=== PATIENT | male | born 1980 | race Asian ===

== ENCOUNTER → 2024-11-22 | Outpatient (CLI) | payer BC, SELFPAY ==
[2024-11-22 11:16] LABS: Collection Type, Urine Clean Catch; Squamous Epithelial Cell,Urine 0 /hpf (0-5)
[2024-11-22 11:42] LABS: Hemoglobin 15.4 g/dL (13.5-16.0); Immature Granulocytes % (Auto) 0 % (0-0); Immature Granulocytes Auto 0.02 Thou/mm3 (0.00-0.00); Lymphocytes % (Auto) 33 % (10-50); Mean Corpuscular Volume 86 fL (80-100); Nucleated Red Blood Cell % 0 /100 WBC (0)
[2024-11-22 11:48] LABS: Basophils # (Auto) 0.1 Thou/mm3 (0.0-0.2); Basophils % (Auto) 1 % (0-2.5); Eosinophils # (Auto) 0.3 Thou/mm3 (0.0-0.5); Eosinophils % (Auto) 3 % (0-10); Hematocrit 44.9 % (41.0-53.0); Lymphocytes # (Auto) 2.5 Thou/mm3 (1.0-4.8); Mean Corpuscular HGB Conc 34.3 g/dl (31.0-37.0); Mean Corpuscular Hemoglobin 29.5 pg (25.0-35.0); Monocytes # (Auto) 0.7 Thou/mm3 (0.0-0.8); Monocytes % (Auto) 9 % (0-12); Neutrophils # (Auto) 4.1 Thou/mm3 (1.8-7.7); Neutrophils % (Auto) 54 % (37-80); Platelet Count 377 Thou/mm3 (140-440); RDW Standard Deviation 41.9 fL (35.1-43.9); Red Blood Count 5.22 Miln/mm3 (4.50-5.90); White Blood Count 7.7 Thou/mm3 (3.8-10.6)
[2024-11-22 11:52] LABS: Prostate Specific Antigen 0.91 ng/mL (0-4.00)
[2024-11-22 11:58] LABS: Alanine Aminotransferase 48 U/L (10-49); Albumin, Serum 4.7 gm/dL (3.5-5.0); Albumin/Globulin Ratio 1.7 (1.2-2.2); Alkaline Phosphatase 88 U/L (46-116); Anion Gap 9 (7-16); Aspartate Amino Transferase 34 U/L (0-34); BUN/Creatinine Ratio 14 Ratio (12-20); Bilirubin,Total 0.9 mg/dL (0.3-1.2); Blood Urea Nitrogen 13 mg/dL (9-23); Calcium 9.7 mg/dL (8.3-10.6); Calcium (Corrected) 9.7 mg/dL (8.5-10.1); Carbon Dioxide 26.8 mMol/L (20.0-31.0); Cardiac Risk Estimate 2.6 RATIO (4.0-6.7); Chloride 105 mMol/L (98-107); Cholesterol 151 mg/dL (132-200); Creatinine (Component) 0.9 mg/dL (0.6-1.3); Free T4 (Free Thyroxine) 1.47 ng/dL (0.89-1.76); Globulin 2.7 gm/dL (2.3-3.5); Glucose 93 mg/dL (74-106); HDL Cholesterol 58 mg/dL (40-60); LDL Cholesterol,Calculated 77 mg/dL (0-130); Osmolality,Calculated 281 (275-295); Potassium 3.6 mMol/L (3.4-5.1); Sodium 141 mMol/L (136-145); Thyroid Stimulating Hormone 0.78 uIU/mL (0.55-4.78); Total Protein 7.4 gm/dL (5.7-8.2); Triglycerides 78 mg/dL (30-150); Uric Acid 6.4 mg/dL (3.7-9.2); eGFR > 60 See Note
[2024-11-22 12:00] LABS: Bilirubin,Urine Negative (Negative); Blood,Urine Negative (Negative); Clarity,Urine Clear (Clear/Hazy); Color,Urine Colorless (Lt Yel-Yel); Glucose, Urine Negative (Negative); Ketones,Urine Negative (Negative); Leukocyte Esterase,Urine Negative (Negative); Nitrite,Urine Negative (Negative); PH,Urine 6.5 (5.0-7.0); Protein,Urine Negative (Neg - Trace); RBC,Urine < 1 /hpf (0-3); Specific Gravity,Urine 1.006 (1.001-1.035); Urobilinogen,Urine Negative mg/dL (0.0-1.0); WBC,Urine 1 /hpf (0-5)
[2024-11-22 12:03] LABS: Glucose Estimated Average 105 mg/dL (80-131); Hemoglobin A1C 5.3 % Hgb (4.8-6.0)
[2024-11-22 12:08] LABS: Vitamin B12 386 pg/mL (211-911); Vitamin D 25 Hydroxy Total 28.2 ng/mL (7.3-40.2)
== END | disposition home or self-care (01) ==
LOC: COPL 10:43
PROVIDERS: PCP Internal Medicine; Referring Provider Internal Medicine; Visit Provider Internal Medicine
DX: Z00.00 Encounter for general adult medical examination without abnormal findings (principal); I10 Essential (primary) hypertension
CPT/HCPCS: 36415; 80053; 80061; 81001; 82306; 82607; 83036; 84153; 84439; 84443; 84550; 85025

== ENCOUNTER 2025-05-09 08:38 | Emergency (ER) | payer BC, SELFPAY ==
[2025-05-09 09:02] VITALS: BP 144/94; PULSE 72; RESP 16; TEMP 37.1; O2SAT 97; BMI 35.5
--- NOTE | 2025-05-09 09:07 | XR_ITS ---
Examination: Hand, left 3 views Technique: Hand AP, oblique, lateral 3 views Date and time of exam: May 09, 2025, 0919 hours INDICATIONS: Injury to the hand with second digit pain 1 hour ago FINDINGS: Soft tissue swelling about the second digit No acute fracture No foreign body IMPRESSION: No acute fracture
--- NOTE | 2025-05-09 09:08 | PD.EDRME ---
Rapid Medical Screening Exam E Arrival date/time: 05/09/25 08:38 44-year-old male with a history of hypertension presents to the emergency room with a chief complaint of an open laceration and trauma to his left index finger that occurred 1 hour ago. Patient states he was hooking up a trailer and got it smashed between a trailer and a ball hitch I have greeted and performed a focused initial assessment of this patient. A comprehensive ED assessment and evaluation of the patient, analysis of all test results, and completion of the medical decision making process will be conducted by additional ED providers. Chief Complaint: Hand/Wrist Problems Time Seen by Provider: 05/09/25 08:42 Vital signs: Vital Signs Temperature 98.8 F 05/09/25 09:02 Pulse Rate 72 05/09/25 09:02 Respiratory Rate 16 05/09/25 09:02 Blood Pressure 144/94 H 05/09/25 09:02 Pulse Oximetry (%) 97 05/09/25 09:02 Oxygen Delivery Method Room Air 05/09/25 09:02 Vital signs reviewed by provider: Yes
[2025-05-09 09:53] VITALS: BP 145/107; PULSE 70; RESP 18; TEMP 36.8; O2SAT 98
[2025-05-09] MEDS: DIPHTH,PERTUSS(ACELL),TET VAC 0.5 ML SYR- ADULT IMi (10:01)
[2025-05-09] MEDS: cefTRIAXone 1,000 MG, LIDOCAINE 1% 20 ML 2.1 ML IM (10:04)
[2025-05-09] MEDS: LIDOCAINE HCL 1% 20 ML VIAL INFL (10:05)
[2025-05-09 11:00] VITALS: BP 153/112; PULSE 76; RESP 16; TEMP 36.9; O2SAT 99
--- NOTE | 2025-05-09 12:28 | PD.EDHAND ---
Upper Extremity Injury RME/HPI General Chief Complaint: Hand/Wrist Problems Stated Complaint: SMASHED L) INDEX FINGER Time Seen by Provider: 05/09/25 08:42 Arrival date/time: 05/09/25 08:38 Limitations: no limitations RME / HPI RME / HPI narrative: 05/09/25 08:38 44-year-old male with a history of hypertension presents to the emergency room with a chief complaint of an open laceration and trauma to his left index finger that occurred 1 hour ago. Patient states he was hooking up a trailer and got it smashed between a trailer and a ball hitch I have greeted and performed a focused initial assessment of this patient. A comprehensive ED assessment and evaluation of the patient, analysis of all test results, and completion of the medical decision making process will be conducted by additional ED providers. DR. NAZARIO MAIN ED EVALUATION: 44 year old male with history of hypertension presents to the ED for evaluation of injury to left hand that occurred ~ 1 hour prior to arrival. States he was hooking up a trailer when his left index finger became smashed between the trailer hitch and ball causing injury. No other injuries reported. Last tetanus unknown. Related Data Home Medications ?Medication ?Instructions ?Recorded ?Confirmed amlodipine 10 mg-benazepril 20 mg 1 cap PO QDAY 12/23/21 12/23/21 capsule fluconazole 200 mg tablet 200 mg PO BID 12/24/21 12/24/21 Previous Rx's ?Medication ?Instructions ?Recorded docusate sodium 100 mg capsule 100 mg PO BID #40 caps 12/24/21 hydrocodone 5 mg-acetaminophen 325 1 tab PO Q6H PRN pain (scale score 12/24/21 mg tablet 7-10) #20 tabs ibuprofen 600 mg tablet 600 mg PO Q8H PRN pain (scale 12/24/21 score 4-6) #15 tabs cephalexin 500 mg capsule 500 mg PO Q6H WOUND REPAIR #20 caps 05/09/25 hydrocodone 5 mg-acetaminophen 325 1 tab PO Q6H PRN pain #20 tabs 10 mg tablet Allergies Allergy/AdvReac Type Severity Reaction Status Date / Time No Known Allergies Allergy Verified 05/09/25 08:41 Review of Systems Review of Systems Systems Reviewed: All systems reviewed, normal except as documented Past Medical History Past Medical History CARDIAC: Positive Hypertension Family History FAMILY HISTORY: Positive Family Cardiac Disorders and Family Cancer Social History SMOKING STATUS: Current every day smoker ED Exam General Limitations: Present no limitations General appearance: Present alert and in no apparent distress Head Head exam: Present atraumatic and normocephalic Eye Eye exam: Present normal appearance and EOMI ENT ENT exam: Present normal exam, normal oropharynx and mucous membranes moist Neck Neck exam: Present normal inspection Chest Chest inspection: Present normal inspection Respiratory Respiratory exam: Present normal lung sounds bilaterally Cardiovascular Cardiovascular exam: Present regular rate, normal rhythm and normal heart sounds Extremities Exam Extremities exam: Present full ROM and other (Left lateral distal second finger had a crush injury, appeared macerated, nail eft intact though lateral to the nail there were 4 small islands of skin that had the macerated pattern displaced 3-4mm, laceration below the nail with displaced skin 3-4mm. n/v intact. ) Neurological Exam Neurological exam: Present alert, oriented X3 and CN II-XII intact Psychiatric Psychiatric exam: Present normal affect and normal mood Skin Skin exam: Present warm, dry, intact and normal color Course Quality Measures none Orders Category Date Time Status Set Up Suture Tray STAT Care 05/09/25 09:07 Completed Wound Care NOW Care 05/09/25 09:07 Completed XR hand comp LT min 3V Stat Exams 05/09/25 09:07 Completed Lidocaine 1% 20 ml [Xylocaine 1% 20 ML] Med 05/09/25 09:07 Discontinued 20 ml INFL X1 ONE TET,DIP/PERT AC (Adult)-Tdap [Boostrix Adult (Tdap) Med 05/09/25 09:07 Discontinued Vacc] 0.5 ml IMI .ONCE ONE ceFAZolin/D5W 1 GM IVPB [Ancef Ivpb] Med 05/09/25 09:07 Discontinued 1 gm in 50 ml IV X1 cefTRIAXone [Rocephin] 1,000 mg Med 05/09/25 09:52 Discontinued Lidocaine 1% 20 ml [Xylocaine 1% 20 ML] 2.1 ml IM X1 Vital Signs Vital signs: Vital Signs Temperature 98.8 F 05/09/25 09:02 Pulse Rate 72 05/09/25 09:02 Respiratory Rate 16 05/09/25 09:02 Blood Pressure 144/94 H 05/09/25 09:02 Pulse Oximetry (%) 97 05/09/25 09:02 Oxygen Delivery Method Room Air 05/09/25 09:02 Pulse ox is 97% on room air which is adequate. PROCEDURES: Laceration Laceration 1: Site: hand and other (Index finger) Side (If applicable): left Size (cm): 2 Description: irregular and other (Macerated, involves nail bed of finger. Complex laceration repair requiring multiple stitches and complex borders and edges to approximate skin repair. ) Depth: involves muscle layer Local Anesthetic: lidocaine 1% Amount of anesthesia used (mL): 8 Pre-repair: wound explored, irrigated extensively and deep structures intact Skin layer closed with: nylon Suture size (cm): 4-0 Number of sutures: 7 Extremity Injury MDM Narrative MDM Narrative:: Maria M Smith am scribing for and in the presence of Dr. Nazario. Patient data External records reviewed:: [facility] previous records Clinical information provided by:: patient Social determinants that could affect healthcare access:: none Patient has the following chronic illnesses:: Hypertension How is presenting disease/condition affected by chronic disease/condition?: uneffected by Evaluation data The following diagnostics were reviewed and interpreted by me:: radiology exam(s) Lab and/or radiology exams considered but not ordered:: None Interpretation Summary: Ordering Physician: Aly Rae Date of Service: 05/09/25 Procedure(s): XR hand comp LT min 3V Accession Number(s): [id number] cc: Aly Rae; Allan Carrillo MD~ Examination: Hand, left 3 views Technique: Hand AP, oblique, lateral 3 views Date and time of exam: May 09, 2025, 918 hours INDICATIONS: Injury to the hand with second digit pain 1 hour ago FINDINGS: Soft tissue swelling about the second digit No acute fracture No foreign body IMPRESSION: No acute fracture Dictated By: Allan Carirllo MD Signed By: <Electronically signed by Allan Carrillo MD in OV> 05/09/25 0943 Medications / Prescriptions Medications or Prescriptions considered but not ordered:: None Medication administrations:: Medication Administration History Discontinued Medications Ceftriaxone Sodium 1,000 mg/ (Lidocaine HCl 2.1 ml) 0 mg IM X1 ONE Stop: 05/09/25 09:53 Last Admin: 05/09/25 10:04 Dose: 1,000 mg Documented By: HUY Diphtheria/Tetanus/Acell Pertussis (Diphth,Pertuss(Acell),Tet Vac 0.5 Ml Syr- Adult) 0.5 ml IMi .ONCE ONE Stop: 05/09/25 09:08 Last Admin: 05/09/25 10:01 Dose: 0.5 ml Documented By: HUY Cefazolin Sodium/Dextrose (Ancef Ivpb) 1 gm in 50 mls @ 100 mls/hr IV X1 ONE Stop: 05/09/25 09:36 Last Admin: 05/09/25 09:56 Dose: Not Given Documented By: HUY Non-Admin Reason: Cancelled by Provider Lidocaine HCl (Lidocaine Hcl 1% 20 Ml Vial) 20 ml INFL X1 ONE Stop: 05/09/25 09:08 Last Admin: 05/09/25 10:05 Dose: 20 ml Documented By: HUY See above Consultations Consultation(s) initiated? (list below): No Diagnosis Upper Extremity Injury Differential Diagnosis: finger sprain, dislocation of finger and other (laceration) Most likely diagnosis given after review of the tests above:: Laceration of finger of left hand Crush injury to finger Admission Indicated Admission indicated?: not indicated Admission Request Was there a request for admission?: No Disposition Plan Disposition Plan: Discharge Discharge Attestation Discharge Attestation: The patient and all family members were given an opportunity to ask questions and understood the discharge instructions. Discharge instructions specifically effects, indications for sooner follow up or return to the emergency department, and the expected course of current diagnosis. Patient condition: Stable Discharge Plan Plan Patient Disposition: HOME (Self Care) Patient condition on transfer: Stable Prescriptions/Referrals Prescriptions/Med Rec: New cephalexin 500 mg capsule 500 mg PO Q6H MDD 4 Qty: 20 0RF hydrocodone-acetaminophen 5-325 mg tablet 1 tab PO Q6H MDD 4 PRN (Reason: pain) Qty: 20 0RF No Action amlodipine-benazepril 10-20 mg capsule 1 cap PO QDAY Patient Comments: TAKE 1 CAPSULE BY MOUTH EVERY DAY fluconazole 200 mg Tablet 200 mg PO BID docusate sodium 100 mg Capsule 100 mg PO BID Qty: 40 0RF hydrocodone-acetaminophen 5-325 mg tablet 1 tab PO Q6H MDD 4 PRN (Reason: pain (scale score 7-10)) Qty: 20 0RF ibuprofen 600 mg tablet 600 mg PO Q8H PRN (Reason: pain (scale score 4-6)) Qty: 15 0RF Referrals: Kate Sanchez MD [Primary Care Provider, Nephrology] - In 1 week Problem List Clinical Impression: Laceration of finger of left hand, Crush injury to finger Patient/Caregiver Discharge Instructions Discharge Activity: activity as tolerated Education Materials: ED Laceration: All Closures Additional Instructions: Remove your splint and wash your finger gently with warm water and soap. Be very gentle with the wound as it needs time to heal. Take your medications as prescribed. You will need the wound checked in 1 day and the sutures out in approximately 10 days. You may come back here to have the wound check tomorrow. Print Language: Faroese Stand Alone Forms: Trudi Award Info., Patient Portal Info Letter
[2025-05-09 12:48] VITALS: BP 146/108; PULSE 78; RESP 16; O2SAT 99
== END 2025-05-09 12:49 | disposition home or self-care (01) ==
PROVIDERS: Emergency Provider Family Medicine; PCP Internal Medicine
DX: S67.10XA Crushing injury of unspecified finger(s), initial encounter (principal); S61.211A Laceration without foreign body of left index finger without damage to nail, initial encounter; S67.22XA Crushing injury of left hand, initial encounter; I10 Essential (primary) hypertension; W23.0XXA Caught, crushed, jammed, or pinched between moving objects, initial encounter
CPT/HCPCS: 12001; 73130; 90715; 99284; J0696; J3490

== ENCOUNTER 2025-05-10 07:11 | Emergency (ER) | payer BC, SELFPAY ==
[2025-05-10 07:22] VITALS: BP 142/94; PULSE 73; RESP 18; TEMP 36.9; O2SAT 96; BMI 36.0
--- NOTE | 2025-05-10 07:38 | EDNOTE_ITS ---
ED Wound/Laceration-RME/HPI General Chief Complaint: Wound/Laceration Stated Complaint: follow up for laceration Time Seen by Provider: 05/10/25 07:37 Arrival date/time: 05/10/25 07:11 RME / HPI RME / HPI narrative: Patient seen in the ER yesterday after having a crush injury to his left second digit sustaining a laceration which was repaired and advised to come to the ER for a wound check. Denies any weakness however he reports continued tingling which he has had since incident. Patient's tetanus shot was updated and he has been compliant with Keflex. Denies fever or worsening pain. Related Data Home Medications ?Medication ?Instructions ?Recorded ?Confirmed amlodipine 10 mg-benazepril 20 mg 1 cap PO QDAY 12/23/21 capsule fluconazole 200 mg tablet 200 mg PO BID 12/24/2112/24 Previous Rx's ?Medication ?Instructions ?Recorded docusate sodium 100 mg capsule 100 mg PO BID #40 caps 12/24/21 hydrocodone 5 mg-acetaminophen 325 1 tab PO Q6H PRN pa in (scale score 12/24/21 mg tablet 7-10) #20 tabs ibuprofen 600 mg tablet 600 mg PO Q8H PRN pain (scal e 12/24/21 score 4-6) #15 tabs cephalexin 500 mg capsule 500 mg PO Q6H WOUND REPAIR # 20 caps 05/09/25 hydrocodone 5 mg-acetaminophen 325 1 tab PO Q6H PRN pa in #20 tabs 10/10/25 mg tablet Allergies Allergy/AdvReac Type Severity Reaction Status Date / Time No Known Allergies Allergy Verified 05/10/25 07:15 Review of Systems Review of Systems Systems Reviewed: All systems reviewed, normal except as documented ED Exam Narrative Physical exam: Constitutional: Vital Signs Reviewed. Well appearing. No acute distress. Not toxic appearing. Head: Normocephalic, atraumatic. Eyes: Conjunctiva clear. ENT: Mucous membranes moist. Neck: Trachea midline. Normal range of motion. No nuchal rigidity. Respiratory: Normal effort. No respiratory distress or accessory muscle use. Neuro: Alert and oriented. Speech normal. No focal gross motor or sensory deficits observed. Skin: Warm, dry, normal color. Psych: Pleasant. Normal affect. Cooperative. Left upper extremity: Strength 4+/5 and mild limited range of motion secondary to pain in left 2nd digit, with capillary refill <2 seconds. Sensation intact to light touch through out and compartments soft. Wound noted to distal phalanx with sutures in place. No erythema, induration, fluctuance. Course Course Course Narrative: MDM Patient presents for wound check after having sutures placed since yesterday status post crush injury wound appears mainly intact with sutures in place. No signs of infection. Digit remains distally neurovascularly intact with soft compartments. Plan for wound care, continue Keflex as prescribed, return in 10 days for suture removal, follow-up with PMD and hand surgeon in 2 days for additional wound check Quality Measures none Orders Category Date Time Status Wound Care [Wound Care] NOW Care 05/10/25 07:44 Completed Reevaluation(s) Reevaluation #1: At the time of reassessment, the patient remains alert and oriented ?3 with GCS 15. Vitals are normal, pain is controlled, and the patient is tolerating oral intake without nausea or vomiting. The patient is agreeable to discharge and verbalizes understanding of the diagnosis, studies, treatment plan, medications (including side effects/precautions), and strict ER return precautions as discussed in the ED. All concerns were addressed, and the patient is comfortable with the plan. Vital Signs Vital signs: Vital Signs Temperature 98.5 F 05/10/25 07:22 Pulse Rate 73 05/10/25 07:22 Respiratory Rate 18 05/10/25 07:22 Blood Pressure 142/94 H 05/10/25 07:22 Pulse Oximetry (%) 96 05/10/25 07:22 Oxygen Delivery Method Room Air 05/10/25 07:22 Wound / Laceration Patient data External records reviewed:: [facility] previous records Clinical information provided by:: patient Social determinants that could affect healthcare access:: none Patient has the following chronic illnesses:: None How is presenting disease/condition affected by chronic disease/condition?: no chronic disease Evaluation data The following diagnostics were reviewed and interpreted by me:: other (specify) Lab and/or radiology exams considered but not ordered:: Labs and radiology considered, but not ordered as they were not clinically indicated at this time. Interpretation Summary: As noted Medications / Prescriptions Medications or Prescriptions considered but not ordered:: I considered prescription management (both outpatient prescriptions AND drug treatment in the ER) and decided that this was necessary and was prescribed as charted. Medication administrations:: As noted Consultations Consultation(s) initiated? (list below): No Diagnosis Wound Differential Diagnosis: laceration and avulsion of skin Most likely diagnosis given after review of the tests above:: Wound check without signs of infection Admission Indicated Admission indicated?: not indicated Admission Request Was there a request for admission?: No Disposition Plan Disposition Plan: Discharge Discharge Attestation Discharge Attestation: The patient and all family members were given an opportunity to ask questions and understood the discharge instructions. Discharge instructions specifically effects, indications for sooner follow up or return to the emergency department, and the expected course of current diagnosis. Patient condition: Stable Discharge Plan Plan Patient Disposition: HOME (Self Care) Patient condition on transfer: Stable Prescriptions/Referrals Prescriptions/Med Rec: No Action amlodipine-benazepril 10-20 mg capsule 1 cap PO QDAY Patient Comments: TAKE 1 CAPSULE BY MOUTH EVERY DAY fluconazole 200 mg Tablet 200 mg PO BID docusate sodium 100 mg Capsule 100 mg PO BID Qty: 40 0RF hydrocodone-acetaminophen 5-325 mg tablet 1 tab PO Q6H MDD 4 PRN (Reason: pain (scale score 7-10)) Qty: 20 0RF ibuprofen 600 mg tablet 600 mg PO Q8H PRN (Reason: pain (scale score 4-6)) Qty: 15 0RF cephalexin 500 mg capsule 500 mg PO Q6H MDD 4 Qty: 20 0RF hydrocodone-acetaminophen 5-325 mg tablet 1 tab PO Q6H MDD 4 PRN (Reason: pain) Qty: 20 0RF Referrals: hand surgeon [Other] - In 1 week Problem List Clinical Impression: Visit for wound check Patient/Caregiver Discharge Instructions Education Materials: ED Dressing Change Additional Instructions: Follow up with your primary medical doctor and a hand surgeon within 48 hours. Return to the Emergency Room immediately for any new, worsening, continuing symptoms or any concerns at all. Return to the Emergency Room within 48 hours if you are unable to follow up with your primary medical doctor and a hand surgeon within 48 hours. Return to the ER in 10 days for suture removal. Print Language: Montserratian Stand Alone Forms: Trudi Award Info., Work/School Release, Patient Portal Info Letter PA/MARSHAL Supervising Physician PA/MARSHAL Supervising Physician: Dr. Fields
== END 2025-05-10 08:27 | disposition home or self-care (01) ==
LOC: SERX 08:25
PROVIDERS: Emergency Provider Emergency Medicine; PCP Internal Medicine
DX: Z48.00 Encounter for change or removal of nonsurgical wound dressing (principal)
CPT/HCPCS: 99283

== ENCOUNTER → 2025-06-03 | Outpatient (CLI) | payer BC, SELFPAY ==
--- NOTE | 2025-06-03 08:24 | XR_ITS ---
Examination: Hand, left 3 views Technique: Hand AP, oblique, lateral 3 views Date and time of exam: June 03, 2025, 0826 hours INDICATIONS: Injury to the hand with second digit pain May 09, 2025 FINDINGS: Soft tissue swelling about the distal phalanx second digit No acute fracture No foreign body IMPRESSION: Soft tissue swelling about the second digit left hand No fracture No foreign body
== END | disposition home or self-care (01) ==
LOC: CDIM 08:09
PROVIDERS: PCP Internal Medicine; Referring Provider Nurse Practitioner Gerontology; Visit Provider Nurse Practitioner Gerontology
DX: S69.92XA Unspecified injury of left wrist, hand and finger(s), initial encounter (principal); X58.XXXA Exposure to other specified factors, initial encounter
CPT/HCPCS: 73130

== ENCOUNTER 2025-07-21 14:10 | Outpatient (RCR) | payer BC, SELFPAY ==
--- NOTE | 2025-07-21 15:09 | PTNOTE_ITS ---
PT OP Initial Eval Patient Information Outpatient Physical Therapy Treatment Date: 07/21/25 Visit Reasons: Laceration of left index finger Medical Diagnosis: s61.211a; m25.642 Treatment Dx #1: Left 2nd Digit Mobility Deficits Treatment Dx #2: Left Hand Pain Start of Care: 07/21/25 Date of Onset: Apr 2025 Smoking Status Smoking Status: Never smoker Initial Assessment Subjective: Pt is a 45 y/o male reports of crushing left index finger where trailer landed on the finger. Xray negative no MRI has been done. Pt has been off of work since Apr 2025 and plans to return to work in Jul 2025 if possible. 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 Pt will benefit from physical therapy to increase ROM, strength, and work on hand dexterity. Short Term and Front Desk Auxiliary Goals 1) Increase 2nd digit flexion AROM WFL in 6 wks to be able to perform work duties 2) Increase left spinner concrete pipe strength to 115 lbs in 6 wks to be able to perform recre ational activities 3) Decrease finger pain to 2/10 in 6 wks to be able to perform chores 4) Increase left wrist MMTs grossly to 4/5 in 6 wks to be able to perform lifting activities 5) Indep with HEP Treatment Plan 1) Manual Therapy 2) Therapeutic Activities 3) Therapeutic Exercises 4) Modalities (ice, heat) Frequency and Duration: 2 x wk for 6 wks Certification Dates: 07/21/25 to 10/19/25 Procedure Charges OP PT Eval Mod Complex 30 minutes: Yes
== END 2025-07-30 23:59 | disposition home or self-care (01) ==
LOC: CPTX 14:10
PROVIDERS: PCP Nurse Practitioner Gerontology; Referring Provider Nurse Practitioner Gerontology; Visit Provider Nurse Practitioner Gerontology
DX: M79.642 Pain in left hand (principal); M25.642 Stiffness of left hand, not elsewhere classified; R53.1 Weakness; S61.211D Laceration without foreign body of left index finger without damage to nail, subsequent encounter; X58.XXXD Exposure to other specified factors, subsequent encounter
CPT/HCPCS: 97162